=== PATIENT | female | born 1955 | race Two or more races ===

== ENCOUNTER 2020-11-29 20:37 | Inpatient (IN) | payer MEDICARE, OTHER ==
[~2020-11-29] VITALS: Ht 154.9 cm; Wt 59.9 kg
--- NOTE | 2020-11-29 21:10 | NUR ---
According to ERMD patient is medicall cleared.
[2020-11-29] MEDS ORDERED: CHOL100062 PO (21:25)
[2020-11-29] MEDS ORDERED: DOCU-141 PO (21:25)
[2020-11-29] MEDS ORDERED: CALC1TAB30 PO (21:25)
[2020-11-29] MEDS ORDERED: LINA5TAB PO (21:25)
[2020-11-29] MEDS ORDERED: PRED-429 PO (21:25)
[2020-11-29] MEDS ORDERED: ACET-2605 PO (21:25)
[2020-11-29] MEDS ORDERED: MULT-635 PO (21:25)
[2020-11-29] MEDS ORDERED: POLY17PO29 PO (21:25)
[2020-11-29] MEDS ORDERED: METO10TA3 PO (21:25)
[2020-11-29] MEDS ORDERED: HYDR-3326 PO (21:25)
[2020-11-29] MEDS ORDERED: AMLO10TA59 PO (21:25)
[2020-11-29] MEDS ORDERED: ONDA4TAB5 PO (21:25)
[2020-11-29] MEDS ORDERED: PANT40TA2 PO (21:25)
[2020-11-29] MEDS ORDERED: ALBU90AE2 INH (21:25)
[2020-11-29] MEDS ORDERED: ACET325C7 PO (21:25)
[2020-11-29] MEDS ORDERED: TIMO5DRO18 OP (21:25)
[2020-11-29] MEDS ORDERED: ONDA4TAB8 PO (21:25)
[2020-11-29] MEDS ORDERED: GABA-534 PO (21:25)
[2020-11-29] MEDS ORDERED: TRAM50TA2 PO (21:25)
[2020-11-29] MEDS ORDERED: SULF1TAB48 PO (21:25)
[2020-11-29 23:04] LABS: IRON, SERUM 13 ug/dL (50-175)
[2020-11-29 23:15] VITALS: BP 142/74
[2020-11-29] MEDS ORDERED: MAGNESIUM HYDROXIDE 30 ML LIQUID UDC PO PRN (23:30)
[2020-11-29] MEDS ORDERED: MAG HYDROX/AL HYDROX/SIMETH 30 ML LIQUID UDC PO PRN (23:30)
[2020-11-29] MEDS: LORAZEPAM 0.5 MG TABLET PO PRN (23:45)
--- NOTE | 2020-11-30 01:00 | NUR ---
ADMISSION NOTES: ADMITTED EARLIER 65 YEARS OLD FEMALE TO [facility] ON A 5150 HOLD FOR DTS. PER HOLD, PATIENT LIVES WITH HER DAUGHTER. SHE WAS NOTED DEPRESSED, CRYING AND SHAKING. SHE STATED SHE WANTS TO WITH PLAN OT CUT HER WRIST. SHE WAS ANXIOUS THOUGHTS ABOUT BLEEDING AND . UPON ADMISSION, PATIENT WAS NOTED A/O X 3, IRISH SPEAKER. SHE IS ABLE TO AMBULATE WITH STEADY GAIT, AND ABLE TO COMPLY WITH ADMISSION PROCESS. FACE TO FACE ASSESSMENT WAS DONE, PATIENT REFLEX WAS IS WRITTEN ON THE HOLD. SHE STATED THAT SINCE HER ABDOMINAL SURGERY, AND HAVING TO DEAL WITH HER COLOSTOMY BAG, SHE FEELS BURDEN TO HER FAMILY AND SHE HAS BEEN VERY ANXIOUS ABOUT IT AND SHE HAS THOUGHT TO MAKE HERSELF BLEED. HOWEVER, PATIENT IS ABLE TO VERBALLY CONTRACT FOR SAFETY. ATIVAN 0.5MG WAS GIVEN FOR ANXIETY. UPON SKIN ASSESSMENT, IT WAS NOTED A WOUND ON HER MID UPPER UMBILICAL AREA OF 7CM X 7CM WITH MILD SEROUS D/C (WOUND DEHISCENCE) A WOUND COUNSL WAS ORDERED. PATIENT WAS GIVEN THE BOOKLET FOR PATIENT'S RIGHT FOR MENTAL HEALTH FACILITIES. SHE WAS ADVISE OF UNIT RULES, ROOM AND ROOMMATE. PATIENT IS UNDER THE CARE OF DR MARTÍNEZ. WE WILL CONTINUE TO MONITOR.
[2020-11-30] MEDS: TEMAZEPAM 7.5 MG CAPSULE PO PRN (01:32)
[2020-11-30 07:30] VITALS: BP 114/64
--- NOTE | 2020-11-30 07:30 | NUR ---
Received patient calm cooperative, having flat affect, speak , patient approach nursing station regarding her colostomy bag and wound care, colostomy care done , patient no sign of distress, on monitoring for safety and suicidal ideation
--- NOTE | 2020-11-30 09:45 | NUR ---
TIGRE Initial Discharge Plan: Patient currently resides at home [address], [address] [place] [address] lives with daughter Cailin Claudio ([phone]). Patient would like to return home upon discharge. SW left a voicemail for daughter Cailin. TIGRE will continue to work with patient, family, and MD to ensure a safe and proper discharge plan.
--- NOTE | 2020-11-30 09:46 | NUR ---
TIGRE Family Contact: SW left a voicemail for patient's daughter Cailin Claudio ([phone]) to discuss treatment and discharge planning. Waiting for a return call.
--- NOTE | 2020-11-30 09:46 | NUR ---
Firearms Report: Iron Assorter completed and submitted a [employer] firearms report for 5150 danger to self certifications. A copy of report has been placed in patient chart.
[2020-11-30] MEDS ORDERED: ACETAMINOPHEN ES 500 MG TABLET PO SCH (12:00)
[2020-11-30] MEDS ORDERED: ONDANSETRON ODT 4 MG TAB.RAPDIS SL PRN (12:00)
[2020-11-30] MEDS ORDERED: Medication Not On Formulary EA (Acetaminophen (Tylenol) 650 MG) PO SCH (12:00)
--- NOTE | 2020-11-30 12:04 | NUR ---
WOUND CARE CONSULT: PT PRESENTS WITH ABDOMINAL SURGICAL WOUND WELL COLOSTOMY, PRESENT ON ADMISSION. RECOMMENDATIONS MADE FOR SKIN PROTECTION AND WOUND CARE. DISCUSSED WITH NURSING STAFF. DR EREN REYES NOTIFIED OF SURGICAL CONSULT REQUEST. IN AGREEMENT WITH PLAN OF CARE. PT IS AMBULATORY AND CONTINENT WITH OSTOMY. Addendum: 11/30/20 at 1205 by JAMES MCGOVERN RN Amended: Links added.
[2020-11-30] MEDS: SERTRALINE HCL 50 MG TABLET PO SCH (13:07)
[2020-11-30 16:00] VITALS: BP 130/61
[2020-11-30] MEDS: GABAPENTIN 300 MG CAPSULE PO SCH (16:21)
[2020-11-30] MEDS: DOCUSATE SODIUM 100 MG CAPSULE PO SCH (16:21)
[2020-11-30] MEDS: METOCLOPRAMIDE HCL 10 MG TABLET PO SCH (16:22)
[2020-11-30] MEDS: TIMOLOL MALEATE 0.5% OPHT DROP 5 ML BOTTLE EACHEYE SCH (16:22)
[2020-11-30] MEDS: CALCIUM CARB/VITAMIN D 500MG-200UNITS TABLET PO SCH (16:23)
[2020-11-30] MEDS: SILVER SULFADIAZINE 1% CREAM 25 GM TUBE TP SCH (16:24)
--- NOTE | 2020-11-30 18:27 | NUR ---
patient remain isolative, withdrawn, stayed in her room most of the time, compliant with medication , no sign of distress,
[2020-11-30 19:51] VITALS: BP 143/57
[2020-11-30] MEDS: MIRTAZAPINE 15 MG TABLET PO SCH (20:22)
--- NOTE | 2020-11-30 23:47 | NUR ---
awake alert and oriented x3. Compliant with meds and care. No acute distress noted. Colostomy intact. Abdominal wound dressing clean dry and intact. Attended to needs. No behavioral issues noted. Slept well. No complaints presented during shift.
[2020-12-01] MEDS: PANTOPRAZOLE SODIUM 40 MG TABLET.DR PO SCH (06:11)
[2020-12-01] MEDS: METOCLOPRAMIDE HCL 10 MG TABLET PO SCH ×3 (06:31→16:16)
--- NOTE | 2020-12-01 06:36 | NUR ---
Slept well throughout the night. No acute distress noted. Quiet night. Denies any pain nor any discomfort. Colostomy functioning well. Needs attended and met. VSS.
[2020-12-01 07:30] VITALS: BP 113/63
[2020-12-01] MEDS: TIMOLOL MALEATE 0.5% OPHT DROP 5 ML BOTTLE EACHEYE SCH ×2 (08:20→16:08)
[2020-12-01] MEDS: GABAPENTIN 300 MG CAPSULE PO SCH ×2 (08:21→16:06)
[2020-12-01] MEDS: AMLODIPINE 10 MG TABLET PO SCH (08:21)
[2020-12-01] MEDS: predniSONE 5 MG TABLET PO SCH (08:21)
[2020-12-01] MEDS: MULTIVIT, IRON, MIN NO. 8, FA TABLET PO SCH (08:21)
[2020-12-01] MEDS: DOCUSATE SODIUM 100 MG CAPSULE PO SCH ×2 (08:21→16:06)
[2020-12-01] MEDS: LINAGLIPTIN 5 MG TABLET PO SCH (08:21)
[2020-12-01] MEDS: CHOLECALCIFEROL 1,000 UNIT TABLET PO SCH (08:21)
[2020-12-01] MEDS: CALCIUM CARB/VITAMIN D 500MG-200UNITS TABLET PO SCH ×2 (08:22→16:07)
[2020-12-01] MEDS: FERROUS GLUCONATE 324 MG TABLET PO SCH (08:22)
[2020-12-01] MEDS: MIRALAX 17 GM POWD.PACK PO SCH (08:22)
[2020-12-01] MEDS: SILVER SULFADIAZINE 1% CREAM 25 GM TUBE TP SCH ×2 (08:24→16:08)
[2020-12-01] MEDS ORDERED: [UNRECOGNIZED DRUG - MIXTURE] PO SCH (09:00)
[2020-12-01] MEDS ORDERED: PREDNISONE 5 MG PO SCH (09:00)
[2020-12-01] MEDS: SERTRALINE HCL 50 MG TABLET PO SCH (12:02)
[2020-12-01 16:00] VITALS: BP 117/57
[2020-12-01 20:00] VITALS: BP 121/56
[2020-12-01] MEDS: SULFAMETH/TRIMETH 800/160 MG TABLET PO SCH (20:31)
[2020-12-01] MEDS: MIRTAZAPINE 15 MG TABLET PO SCH (20:31)
--- NOTE | 2020-12-02 02:17 | NUR ---
RECEIVED PATIENT IN HER ROOM. ISOLATIVE AND WITHDRAWN. NOT IN DISTRESS AND NO C/O PAIN MADE.NOTED WITH A COLOSTOMY BAG WHICH IS FUNCTIONING WELL. MAINLY IRAQI SPEAKING BUT ABLE TO MAKE NEEDS KNOWN. SHE IS MEDICATION COMPLIANT.SAFE ENVIRONMENT PROVIDED. WILL CONTINUE TO MONITOR.
[2020-12-02] MEDS: PANTOPRAZOLE SODIUM 40 MG TABLET.DR PO SCH (06:22)
[2020-12-02] MEDS: METOCLOPRAMIDE HCL 10 MG TABLET PO SCH ×3 (06:23→17:05)
--- NOTE | 2020-12-02 06:28 | NUR ---
SHE SLEPT WELL FOR 10 HOURS. SHE A SMALL BM IN HER COLOSTOMY POUCH BUT SAYS SHE WILL EMPTY IT LATER..
[2020-12-02 07:30] VITALS: BP 126/66
[2020-12-02] MEDS: MULTIVIT, IRON, MIN NO. 8, FA TABLET PO SCH (09:08)
[2020-12-02] MEDS: GABAPENTIN 300 MG CAPSULE PO SCH ×2 (09:08→17:05)
[2020-12-02] MEDS: DOCUSATE SODIUM 100 MG CAPSULE PO SCH ×2 (09:08→17:05)
[2020-12-02] MEDS: SULFAMETH/TRIMETH 800/160 MG TABLET PO SCH ×2 (09:08→20:36)
[2020-12-02] MEDS: CHOLECALCIFEROL 1,000 UNIT TABLET PO SCH (09:08)
[2020-12-02] MEDS: AMLODIPINE 10 MG TABLET PO SCH (09:09)
[2020-12-02] MEDS: LINAGLIPTIN 5 MG TABLET PO SCH (09:09)
[2020-12-02] MEDS: predniSONE 5 MG TABLET PO SCH (09:09)
[2020-12-02] MEDS: CALCIUM CARB/VITAMIN D 500MG-200UNITS TABLET PO SCH ×2 (09:10→17:05)
[2020-12-02] MEDS: SILVER SULFADIAZINE 1% CREAM 25 GM TUBE TP SCH ×2 (09:10→17:06)
[2020-12-02] MEDS: TIMOLOL MALEATE 0.5% OPHT DROP 5 ML BOTTLE EACHEYE SCH ×2 (09:11→17:05)
[2020-12-02] MEDS: FERROUS GLUCONATE 324 MG TABLET PO SCH (09:11)
[2020-12-02] MEDS: MIRALAX 17 GM POWD.PACK PO SCH (09:11)
[2020-12-02] MEDS: SERTRALINE HCL 50 MG TABLET PO SCH (12:17)
[2020-12-02 15:32] VITALS: BP 121/64
--- NOTE | 2020-12-02 16:04 | NUR ---
Colostomy Bag changed- educated pt on not to have the colostomy hole of stoma too big as it can irritate the skin. Pt verbalized understanding. Dressing on abd changed as ordered. Dehiscence noted dressing changed as ordered. Pix taken. Pt tolerated intervention. Pt speaks broken lithuanian but able to converse needs and understand instructions.
[2020-12-02 20:02] VITALS: BP 133/68
[2020-12-02] MEDS: MIRTAZAPINE 15 MG TABLET PO SCH (20:36)
[2020-12-02] MEDS: TEMAZEPAM 7.5 MG CAPSULE PO PRN (21:13)
[2020-12-03] MEDS: METOCLOPRAMIDE HCL 10 MG TABLET PO SCH ×3 (06:24→16:50)
[2020-12-03] MEDS: PANTOPRAZOLE SODIUM 40 MG TABLET.DR PO SCH (06:24)
[2020-12-03 07:30] VITALS: BP 154/64
[2020-12-03] MEDS: CHOLECALCIFEROL 1,000 UNIT TABLET PO SCH (08:28)
[2020-12-03] MEDS: SULFAMETH/TRIMETH 800/160 MG TABLET PO SCH ×2 (08:28→20:27)
[2020-12-03] MEDS: CALCIUM CARB/VITAMIN D 500MG-200UNITS TABLET PO SCH ×2 (08:28→16:50)
[2020-12-03] MEDS: AMLODIPINE 10 MG TABLET PO SCH (08:28)
[2020-12-03] MEDS: LINAGLIPTIN 5 MG TABLET PO SCH (08:29)
[2020-12-03] MEDS: MULTIVIT, IRON, MIN NO. 8, FA TABLET PO SCH (08:29)
[2020-12-03] MEDS: GABAPENTIN 300 MG CAPSULE PO SCH ×2 (08:29→16:50)
[2020-12-03] MEDS: DOCUSATE SODIUM 100 MG CAPSULE PO SCH ×2 (08:29→16:50)
[2020-12-03] MEDS: FERROUS GLUCONATE 324 MG TABLET PO SCH (08:29)
[2020-12-03] MEDS: predniSONE 5 MG TABLET PO SCH (08:30)
[2020-12-03] MEDS: TIMOLOL MALEATE 0.5% OPHT DROP 5 ML BOTTLE EACHEYE SCH ×2 (08:32→16:49)
[2020-12-03] MEDS: MIRALAX 17 GM POWD.PACK PO SCH (08:32)
[2020-12-03] MEDS: SILVER SULFADIAZINE 1% CREAM 25 GM TUBE TP SCH ×2 (08:37→16:49)
--- NOTE | 2020-12-03 09:51 | NUR ---
SW Family Contact: SW spoke with patient's daughter Cailin Claudio ([phone]) with the help of translating by Jj ROJO and discussed treatment and discharge plan. Cailin stated that she wants SNF placement for the patient at this time.
--- NOTE | 2020-12-03 10:22 | NUR ---
RECEIVED PT AWAKE, ALERT AND ORIENTEDX3. PT IN NO ACUTE DISTRESS. PT PLEASANT WHEN APPROACHED. SAFETY AND COMFORT PROVIDED. WILL CONTINUE TO MONITOR.
[2020-12-03] MEDS: SERTRALINE HCL 50 MG TABLET PO SCH ×2 (12:10→16:50)
--- NOTE | 2020-12-03 12:52 | NUR ---
TIGRE SNF Referral: TIGRE faxed patient's referral packet to [facility] [address] [place] [phone] ([phone]) with attention to Miriam night coordinator for review. Addendum: 12/04/20 at 0724 by MILLY DYE Spoke with Miriam who stated they cannot accept the patient to their facility due to SI.
--- NOTE | 2020-12-03 14:46 | NUR ---
PT IN NO ACUTE DISTRESS. COMPLIANT WITH CARE. PRESCRIBED MEDICATION GIVEN AND PT TOLERATED IT WELL. WOUND CARE PROVIDED. SAFETY AND COMFORT PROVIDED. WILL ENDORSE TO INCOMING NURSE.
[2020-12-03 16:00] VITALS: BP 121/69
[2020-12-03] MEDS: MIRTAZAPINE 15 MG TABLET PO SCH (20:27)
[2020-12-03 20:30] VITALS: BP 136/66
[2020-12-04] MEDS: ACETAMINOPHEN 325 MG TABLET PO PRN ×2 (03:38→20:22)
[2020-12-04] MEDS: LORAZEPAM 0.5 MG TABLET PO PRN (04:14)
--- NOTE | 2020-12-04 06:23 | NUR ---
Received Pt in bed awake, A+Ox3. Pleasant on approach, but quiet and in a low mood. Appears depressed, Pt is isolative, reclusive, and only out of her room for needs. Compliant with medications, cooperative with staff and unit rules. Denies any current SI/HI and verbally contracts for safety inside the hospital. Surgical abd wound noted s/p colostomy placement. Wound is approximately 21cm in diameter, pink, and draining scant amounts of serous fluid. No s/s of infection noted, wound change performed as ordered-cleansed site with NS, patted dry, applied Silvadene to site, placed oil emusion dressing over site, covered with non adherent abd pad, and secured with paper tape. Pt tolerated the procedure well. Pt rested until 0330 and awoke c/o nausea, mild epigastric pain, and anxiety. Zofran 4mg, Tylenol 650mg, and Ativan 0.5mg administered with good effect. Pt noted to be laying in bed with her eyes closed, breathing even and unlabored about 1 hour after administration. Colostomy bag emptied. VS stable, in no acute distress.
[2020-12-04] MEDS: PANTOPRAZOLE SODIUM 40 MG TABLET.DR PO SCH (06:34)
[2020-12-04] MEDS: METOCLOPRAMIDE HCL 10 MG TABLET PO SCH ×3 (06:34→17:20)
[2020-12-04 07:30] VITALS: BP 132/58
[2020-12-04] MEDS: DOCUSATE SODIUM 100 MG CAPSULE PO SCH ×2 (08:47→17:20)
[2020-12-04] MEDS: CHOLECALCIFEROL 1,000 UNIT TABLET PO SCH (08:48)
[2020-12-04] MEDS: LINAGLIPTIN 5 MG TABLET PO SCH (08:48)
[2020-12-04] MEDS: MULTIVIT, IRON, MIN NO. 8, FA TABLET PO SCH (08:48)
[2020-12-04] MEDS: MIRALAX 17 GM POWD.PACK PO SCH (08:48)
[2020-12-04] MEDS: CALCIUM CARB/VITAMIN D 500MG-200UNITS TABLET PO SCH ×2 (08:48→17:19)
[2020-12-04] MEDS: AMLODIPINE 10 MG TABLET PO SCH (08:48)
[2020-12-04] MEDS: GABAPENTIN 300 MG CAPSULE PO SCH ×2 (08:48→17:19)
[2020-12-04] MEDS: FERROUS GLUCONATE 324 MG TABLET PO SCH (08:48)
[2020-12-04] MEDS: TIMOLOL MALEATE 0.5% OPHT DROP 5 ML BOTTLE EACHEYE SCH ×2 (08:49→17:20)
[2020-12-04] MEDS: predniSONE 5 MG TABLET PO SCH (08:53)
[2020-12-04] MEDS: SILVER SULFADIAZINE 1% CREAM 25 GM TUBE TP SCH ×2 (08:57→20:08)
[2020-12-04] MEDS: SULFAMETH/TRIMETH 800/160 MG TABLET PO SCH ×2 (08:59→20:05)
--- NOTE | 2020-12-04 09:36 | NUR ---
TIGRE SNF Referral: TIGRE faxed patient's referral packet to [facility] ([phone]) attention to Fil[facility] and [facility] ([phone]) attention to Nesha. Addendum: 12/04/20 at 1247 by MILLY DYE Patient is accepted at [facility]. Patient did not get accepted at [facility].
--- NOTE | 2020-12-04 10:31 | NUR ---
SW Individual Therapy Note: SW met with patient to provide brief individual counseling to address patient's presenting problem of suicidal ideation. SW assessed patient's level of suicidality. Patient presents with a brighter affect and states she is having less suicidal ideation. Patient expressed she still have feelings of anxiety and depression. SW will continue to monitor patient's suicidality and encouraged patient to attend group activities. SW also discussed SNF placement and patient is agreeable going to a SNF upon discharge.
[2020-12-04] MEDS: SERTRALINE HCL 50 MG TABLET PO SCH ×2 (14:33→17:20)
[2020-12-04 15:11] VITALS: BP 102/46
[2020-12-04] MEDS: MIRTAZAPINE 15 MG TABLET PO SCH (20:05)
[2020-12-04 20:18] VITALS: BP 141/55
--- NOTE | 2020-12-04 22:08 | NUR ---
PATIENT RECEIVED IN BED AWAKE. PATIENT IS CALM AND COOPERATIVE. PATIENT DENIES SI SHE STATED " I HAD A GOOD DAY TODAY." NO AGGRESSIVE OR COMBATIVE BEHAVIOR NOTED. PATIENT IS ALERT/ORIENTED X3. PATIENT IS COMPLAINT WITH MEDICATION AND TREATMENT TO ABDOMINAL IS RENDERED ORDERED. PATIENT IS AMBULATORY AND PATIENT IS ABLE TO MAKE NEEDS KNOWN. SAFE ENVIRONMENT PROVIDED, FREQUENT ROUNDING, AND CLUTTER FREE ENVIRONMENT. BED IN LOWEST POSITION AND BED LOCKED.
[2020-12-05] MEDS: METOCLOPRAMIDE HCL 10 MG TABLET PO SCH ×3 (06:31→17:25)
[2020-12-05] MEDS: PANTOPRAZOLE SODIUM 40 MG TABLET.DR PO SCH (06:31)
[2020-12-05 07:30] VITALS: BP 132/64
[2020-12-05] MEDS: predniSONE 5 MG TABLET PO SCH (08:31)
[2020-12-05] MEDS: AMLODIPINE 10 MG TABLET PO SCH (08:31)
[2020-12-05] MEDS: CALCIUM CARB/VITAMIN D 500MG-200UNITS TABLET PO SCH ×2 (08:31→17:27)
[2020-12-05] MEDS: MULTIVIT, IRON, MIN NO. 8, FA TABLET PO SCH (08:31)
[2020-12-05] MEDS: GABAPENTIN 300 MG CAPSULE PO SCH ×2 (08:31→17:25)
[2020-12-05] MEDS: CHOLECALCIFEROL 1,000 UNIT TABLET PO SCH (08:31)
[2020-12-05] MEDS: SILVER SULFADIAZINE 1% CREAM 25 GM TUBE TP SCH ×2 (08:32→21:00)
[2020-12-05] MEDS: SULFAMETH/TRIMETH 800/160 MG TABLET PO SCH ×2 (08:32→20:41)
[2020-12-05] MEDS: DOCUSATE SODIUM 100 MG CAPSULE PO SCH ×2 (08:32→17:25)
[2020-12-05] MEDS: LINAGLIPTIN 5 MG TABLET PO SCH (08:32)
[2020-12-05] MEDS: FERROUS GLUCONATE 324 MG TABLET PO SCH (08:32)
[2020-12-05] MEDS: TIMOLOL MALEATE 0.5% OPHT DROP 5 ML BOTTLE EACHEYE SCH ×2 (08:49→17:28)
[2020-12-05] MEDS: MIRALAX 17 GM POWD.PACK PO SCH (08:49)
[2020-12-05] MEDS: SERTRALINE HCL 50 MG TABLET PO SCH ×2 (12:07→17:26)
--- NOTE | 2020-12-05 14:08 | NUR ---
Court Hearing: Patient's court hearing was held today and it was upheld for GD and danger to self.
[2020-12-05 16:06] VITALS: BP 109/43
[2020-12-05] MEDS: MIRTAZAPINE 15 MG TABLET PO SCH (20:41)
[2020-12-05 21:12] VITALS: BP 128/58
[2020-12-06] MEDS: PANTOPRAZOLE SODIUM 40 MG TABLET.DR PO SCH (06:05)
--- NOTE | 2020-12-06 06:13 | NUR ---
Patient slept about 7.45 hrs.Calm and pleasant.Adherent with medication.Colostomy in place. Refused wound care tx at this time.Patient states she wants it to be done in the morning after shower.
[2020-12-06] MEDS: METOCLOPRAMIDE HCL 10 MG TABLET PO SCH ×3 (06:31→16:37)
[2020-12-06 07:30] VITALS: BP 123/50
[2020-12-06] MEDS: MULTIVIT, IRON, MIN NO. 8, FA TABLET PO SCH (08:17)
[2020-12-06] MEDS: FERROUS GLUCONATE 324 MG TABLET PO SCH (08:18)
[2020-12-06] MEDS: CHOLECALCIFEROL 1,000 UNIT TABLET PO SCH (08:18)
[2020-12-06] MEDS: predniSONE 5 MG TABLET PO SCH (08:18)
[2020-12-06] MEDS: LINAGLIPTIN 5 MG TABLET PO SCH (08:18)
[2020-12-06] MEDS: AMLODIPINE 10 MG TABLET PO SCH (08:18)
[2020-12-06] MEDS: GABAPENTIN 300 MG CAPSULE PO SCH ×2 (08:18→16:37)
[2020-12-06] MEDS: DOCUSATE SODIUM 100 MG CAPSULE PO SCH ×2 (08:19→16:37)
[2020-12-06] MEDS: MIRALAX 17 GM POWD.PACK PO SCH (08:19)
[2020-12-06] MEDS: SULFAMETH/TRIMETH 800/160 MG TABLET PO SCH (08:30)
[2020-12-06] MEDS: SILVER SULFADIAZINE 1% CREAM 25 GM TUBE TP SCH ×2 (09:00→20:19)
[2020-12-06] MEDS: CALCIUM CARB/VITAMIN D 500MG-200UNITS TABLET PO SCH ×2 (09:21→16:37)
[2020-12-06] MEDS: TIMOLOL MALEATE 0.5% OPHT DROP 5 ML BOTTLE EACHEYE SCH ×2 (10:21→16:40)
--- NOTE | 2020-12-06 10:29 | NUR ---
Gps/Bakery Associate- Colostomy care amd abdominal wound care will be done after shower per pt. request.
[2020-12-06] MEDS: SERTRALINE HCL 50 MG TABLET PO SCH ×2 (12:07→16:39)
[2020-12-06 16:35] VITALS: BP 133/60
[2020-12-06 20:00] VITALS: BP 110/50
[2020-12-06] MEDS: MIRTAZAPINE 15 MG TABLET PO SCH (20:18)
--- NOTE | 2020-12-06 21:27 | NUR ---
Awake alert and oriented x4 Ambulatory. VSS. Attended to needs. No acute distress noted. Colostomy intact, soft blackish stools noted. Will monitor patient. Abdominal dressing intact.
[2020-12-07] MEDS: PANTOPRAZOLE SODIUM 40 MG TABLET.DR PO SCH (06:17)
[2020-12-07] MEDS: METOCLOPRAMIDE HCL 10 MG TABLET PO SCH ×3 (06:32→16:31)
[2020-12-07 07:30] VITALS: BP 152/76
[2020-12-07] MEDS: DOCUSATE SODIUM 100 MG CAPSULE PO SCH ×2 (08:35→16:30)
[2020-12-07] MEDS: CALCIUM CARB/VITAMIN D 500MG-200UNITS TABLET PO SCH ×2 (08:35→16:28)
[2020-12-07] MEDS: LINAGLIPTIN 5 MG TABLET PO SCH (08:35)
[2020-12-07] MEDS: CHOLECALCIFEROL 1,000 UNIT TABLET PO SCH (08:35)
[2020-12-07] MEDS: FERROUS GLUCONATE 324 MG TABLET PO SCH (08:35)
[2020-12-07] MEDS: MULTIVIT, IRON, MIN NO. 8, FA TABLET PO SCH (08:35)
[2020-12-07] MEDS: AMLODIPINE 10 MG TABLET PO SCH (08:36)
[2020-12-07] MEDS: predniSONE 5 MG TABLET PO SCH (08:36)
[2020-12-07] MEDS: GABAPENTIN 300 MG CAPSULE PO SCH ×2 (08:36→16:31)
[2020-12-07] MEDS: MIRALAX 17 GM POWD.PACK PO SCH (08:37)
[2020-12-07] MEDS: SILVER SULFADIAZINE 1% CREAM 25 GM TUBE TP SCH ×2 (08:37→20:48)
[2020-12-07] MEDS: TIMOLOL MALEATE 0.5% OPHT DROP 5 ML BOTTLE EACHEYE SCH ×2 (08:46→16:34)
--- NOTE | 2020-12-07 11:12 | NUR ---
Gps/Cigar Making Supervisor- Wound care to lower abdominal open wound redressed as ordered., pinkish red, no drainage , granulation noted. Colostomy bag secured.
[2020-12-07] MEDS: SERTRALINE HCL 50 MG TABLET PO SCH ×2 (12:23→16:30)
--- NOTE | 2020-12-07 14:31 | NUR ---
TIGRE Individual Therapy Note: SW met with patient to provide brief individual counseling to address patient's presenting problem of suicidal ideation. SW assessed patient's level of suicidality. Patient denies suicidal ideation, however states that she has moments of feeling sad. SW discussed discharge planning with patient to a SNF. Patient is agreeable.
[2020-12-07 16:31] VITALS: BP 128/63
[2020-12-07 20:07] VITALS: BP 141/55
[2020-12-07] MEDS: MIRTAZAPINE 15 MG TABLET PO SCH (20:48)
--- NOTE | 2020-12-07 21:26 | NUR ---
Received patient lying in bed. No s/s of acute distress noted at this time. Patient compliant with her routine medications. Pleasant when interactive and cooperative with plan of care. Patient denies SI thoughts. States they feel depressed at times. Reassured patient to verbalize needs. Safety measures in place and will continue with plan of care.
--- NOTE | 2020-12-08 05:37 | NUR ---
Patient slept about 6.15 hrs. Calm and pleasant. Colostomy in place. Refused wound care tx at this time.Patient states she wants it to be done in the morning. Will endorse to oncoming nurse
[2020-12-08] MEDS: PANTOPRAZOLE SODIUM 40 MG TABLET.DR PO SCH (06:03)
[2020-12-08] MEDS: METOCLOPRAMIDE HCL 10 MG TABLET PO SCH ×3 (06:32→16:47)
[2020-12-08 07:30] VITALS: BP 124/61
[2020-12-08] MEDS: CHOLECALCIFEROL 1,000 UNIT TABLET PO SCH (08:28)
[2020-12-08] MEDS: GABAPENTIN 300 MG CAPSULE PO SCH ×2 (08:28→16:47)
[2020-12-08] MEDS: predniSONE 5 MG TABLET PO SCH (08:29)
[2020-12-08] MEDS: AMLODIPINE 10 MG TABLET PO SCH (08:29)
[2020-12-08] MEDS: DOCUSATE SODIUM 100 MG CAPSULE PO SCH ×2 (08:29→16:47)
[2020-12-08] MEDS: MULTIVIT, IRON, MIN NO. 8, FA TABLET PO SCH (08:29)
[2020-12-08] MEDS: FERROUS GLUCONATE 324 MG TABLET PO SCH (08:29)
[2020-12-08] MEDS: CALCIUM CARB/VITAMIN D 500MG-200UNITS TABLET PO SCH ×2 (08:29→16:47)
[2020-12-08] MEDS: MIRALAX 17 GM POWD.PACK PO SCH (08:30)
[2020-12-08] MEDS: TIMOLOL MALEATE 0.5% OPHT DROP 5 ML BOTTLE EACHEYE SCH ×2 (08:30→16:48)
[2020-12-08] MEDS: LINAGLIPTIN 5 MG TABLET PO SCH (08:30)
[2020-12-08] MEDS: SILVER SULFADIAZINE 1% CREAM 25 GM TUBE TP SCH ×2 (08:31→20:19)
[2020-12-08] MEDS: SERTRALINE HCL 50 MG TABLET PO SCH ×2 (12:06→16:47)
[2020-12-08 16:00] VITALS: BP 116/59
[2020-12-08 18:53] LABS: *BILIRUBIN,URIN NEGATIVE (NEGATIVE); *BLOOD, URINE 2+ (NEGATIVE); *COLOR,URINE LIGHT YELLOW (YELLOW); *KETONES,URINE NEGATIVE (NEGATIVE); *UROBILINOGEN,URINE 0.2 E.U./dl (NORMAL); LEUKOCYTE ESTERASE ,URINE NEGATIVE (NEGATIVE); NITRITE, URINE NEGATIVE (NEGATIVE); PH,URINE 7.5 (5.0-8.0); UGLUCOSE NEGATIVE (NEGATIVE)
[2020-12-08 18:59] LABS: *CLARITY,URINE SLIGHTLY HAZY (CLEAR)
[2020-12-08 19:00] LABS: BACTERIA,URINE NONE SEEN /HPF (NONE SEEN); WBC,URINE 0-3 /HPF (0-3)
[2020-12-08 19:01] LABS: SQUAMOUS EPITHELIAL CELL,UR NONE SEEN /HPF (NONE SEEN)
[2020-12-08 20:07] VITALS: BP 127/59
[2020-12-08] MEDS: MIRTAZAPINE 15 MG TABLET PO SCH (20:19)
[2020-12-08] MEDS: ACETAMINOPHEN 325 MG TABLET PO PRN (20:29)
[2020-12-08] MEDS: TEMAZEPAM 7.5 MG CAPSULE PO PRN (21:33)
[2020-12-09] MEDS: PANTOPRAZOLE SODIUM 40 MG TABLET.DR PO SCH (06:34)
[2020-12-09] MEDS: METOCLOPRAMIDE HCL 10 MG TABLET PO SCH ×3 (06:34→16:32)
--- NOTE | 2020-12-09 07:00 | NUR ---
Received Pt in bed awake, A+Ox3. Pleasant on approach, but quiet and in a low mood. Appears depressed, Pt is isolative, reclusive, and only out of her room for needs. Compliant with medications, cooperative with staff and unit rules. Denies any current SI/HI and verbally contracts for safety inside the hospital. Surgical abd wound noted s/p colostomy placement. Wound is approximately 21cm in diameter, pink, and draining scant amounts of serous fluid. No s/s of infection noted, wound change performed as ordered-cleansed site with NS, patted dry, applied Silvadene to site, placed oil emulsion dressing over site, covered with non adherent abd pad, and secured with paper tape. Pt tolerated the procedure well. Tylenol 650mg administered for 6/10 abd surgical wound pain, and Restoril 7.5mg administered for insomnia, both with good effect. VS stable
[2020-12-09 07:30] VITALS: BP 134/80
[2020-12-09] MEDS: MIRALAX 17 GM POWD.PACK PO SCH (08:21)
[2020-12-09] MEDS: FERROUS GLUCONATE 324 MG TABLET PO SCH (08:21)
[2020-12-09] MEDS: CHOLECALCIFEROL 1,000 UNIT TABLET PO SCH (08:21)
[2020-12-09] MEDS: predniSONE 5 MG TABLET PO SCH (08:22)
[2020-12-09] MEDS: CALCIUM CARB/VITAMIN D 500MG-200UNITS TABLET PO SCH ×2 (08:22→16:30)
[2020-12-09] MEDS: LINAGLIPTIN 5 MG TABLET PO SCH (08:22)
[2020-12-09] MEDS: AMLODIPINE 10 MG TABLET PO SCH (08:22)
[2020-12-09] MEDS: DOCUSATE SODIUM 100 MG CAPSULE PO SCH ×2 (08:22→16:31)
[2020-12-09] MEDS: MULTIVIT, IRON, MIN NO. 8, FA TABLET PO SCH (08:22)
[2020-12-09] MEDS: GABAPENTIN 300 MG CAPSULE PO SCH ×2 (08:22→16:30)
[2020-12-09] MEDS: TIMOLOL MALEATE 0.5% OPHT DROP 5 ML BOTTLE EACHEYE SCH ×2 (08:23→16:31)
[2020-12-09] MEDS: SILVER SULFADIAZINE 1% CREAM 25 GM TUBE TP SCH ×2 (08:42→20:18)
[2020-12-09] MEDS ORDERED: FERROUS SULFATE 325 MG TABEC PO SCH (09:00)
[2020-12-09] MEDS: SERTRALINE HCL 50 MG TABLET PO SCH ×2 (12:02→16:31)
[2020-12-09 16:00] VITALS: BP 131/65
[2020-12-09 19:58] VITALS: BP 127/50
[2020-12-09] MEDS: MIRTAZAPINE 15 MG TABLET PO SCH (20:17)
[2020-12-09] MEDS ORDERED: SIMVASTATIN 20 MG TABLET PO SCH (21:00)
[2020-12-09] MEDS: TEMAZEPAM 7.5 MG CAPSULE PO PRN (21:25)
[2020-12-10] MEDS: PANTOPRAZOLE SODIUM 40 MG TABLET.DR PO SCH (06:14)
[2020-12-10 06:53] LABS: BASOPHILS # (AUTO) 0.1 K/uL (0.0-8.0); EOSINOPHILS # (AUTO) 0.2 K/uL (0.0-0.7); EOSINOPHILS % (AUTO) 2.4 % (0.0-7.0); HEMOGLOBIN 10.2 g/dL (10.9-14.3); LYMPHOCYTES # (AUTO) 2.1 K/uL (20.0-40.0); MEAN CORPUSCULAR HEMOGLOBIN 25.4 uug (24.7-32.8); MEAN CORPUSCULAR HGB CONC 33 g/dL (32.3-35.6); MEAN CORPUSCULAR VOLUME 77.6 fL (75.5-95.3); MONOCYTES # (AUTO) 0.6 K/uL (2.0-10.0); MONOCYTES % (AUTO) 7.6 % (0.0-11.0); NEUTROPHILS # (AUTO) 4.8 K/uL (1.8-8.9); PLATELET COUNT (AUTO) 462 K/uL (179-408); WHITE BLOOD COUNT (AUTO) 7.8 K/uL (3.8-11.8)
[2020-12-10] MEDS: METOCLOPRAMIDE HCL 10 MG TABLET PO SCH (07:03)
[2020-12-10 07:05] LABS: CREATININE 1.6 mg/dL (0.6-1.3); POTASSIUM 3.7 mmol/L (3.5-5.1)
[2020-12-10 07:30] VITALS: BP 143/63
--- NOTE | 2020-12-10 08:19 | NUR ---
SW Discharge Note: Patient will be discharged to [facility] [address] [place] [address] ([phone]). Patient will be provided Ambulance transportation at 11AM. Spoke with Maria C, Admin Coordinator at the facility who states they are ready to accept the patient today. Patient is aware and agreeable with discharge plans. Patient is alert and oriented x3, is unable to plan for self-care at this time, however, is willing to accept care at [facility]. Patient denies any suicidal or homicidal ideation. Patient presented with euthymic and congruent affect. Patient will follow-up at the facility with Dr. Cannon Psychiatrist and Dr. Agosto Wire Spooler. Patients daughter, Cailin Claudio ([phone]) is aware of discharge and agreeable.
[2020-12-10 08:20] VITALS: BP 142/61
[2020-12-10] MEDS: LINAGLIPTIN 5 MG TABLET PO SCH (08:20)
[2020-12-10] MEDS: MULTIVIT, IRON, MIN NO. 8, FA TABLET PO SCH (08:20)
[2020-12-10] MEDS: GABAPENTIN 300 MG CAPSULE PO SCH (08:20)
[2020-12-10] MEDS: DOCUSATE SODIUM 100 MG CAPSULE PO SCH (08:20)
[2020-12-10] MEDS: MIRALAX 17 GM POWD.PACK PO SCH (08:20)
[2020-12-10] MEDS: CALCIUM CARB/VITAMIN D 500MG-200UNITS TABLET PO SCH (08:20)
[2020-12-10] MEDS: FERROUS GLUCONATE 324 MG TABLET PO SCH (08:20)
[2020-12-10] MEDS: CHOLECALCIFEROL 1,000 UNIT TABLET PO SCH (08:20)
[2020-12-10] MEDS: predniSONE 5 MG TABLET PO SCH (08:20)
[2020-12-10] MEDS: AMLODIPINE 10 MG TABLET PO SCH (08:20)
[2020-12-10] MEDS: SILVER SULFADIAZINE 1% CREAM 25 GM TUBE TP SCH (08:21)
[2020-12-10] MEDS: TIMOLOL MALEATE 0.5% OPHT DROP 5 ML BOTTLE EACHEYE SCH (08:21)
[2020-12-10] MEDS ORDERED: METOCLOPRAMIDE HCL 10 MG TABLET PO SCH (11:30)
--- NOTE | 2020-12-10 11:30 | NUR ---
GPS: Nursing Notes: Discharge Notes: Patient is awake and responding to her name, cooperative with nursing care, compliant with her medications and abdominal surgical wound treatment, patient showered and colostomy bag changed this AM, following staff directions, denies SI/HI, denies AH/VH, denies pain or discomfort, denies SOB. Discharge to [facility] at [address] [place] [address] , report given to facility's nurse - JASEN Denis wet end supervisor, transported to facility via ambulance, discharge package given to the boat driver for the facility. Patient will follow-up at the facility with Dr. Cannon Psychiatrist and Dr. Agosto Hearing Aid Dispenser. Patients daughter, Cailin Claudio ([phone]) informed of discharge by social science research assistant, patient took all her belongings with her, continue with discharge planning.
== END 2020-12-10 11:30 | DRG 876 ==
LOC: ER 20:39 → GPS 22:38
PROVIDERS: ADMIT Psychiatry & Neurology Psychosomatic Medicine; ATTEND Registered Nurse
PROC: 0JB80ZZ Excision of Abdomen Subcutaneous Tissue and Fascia, Open Approach (ICD-10-PCS; principal; 2020-11-30)
DX: F33.2 Major depressive disorder, recurrent severe without psychotic features (principal); N17.0 Acute kidney failure with tubular necrosis; Z93.3 Colostomy status; R45.851 Suicidal ideations; L03.311 Cellulitis of abdominal wall; F23 Brief psychotic disorder; T81.30XA Disruption of wound, unspecified, initial encounter; M06.9 Rheumatoid arthritis, unspecified; D50.9 Iron deficiency anemia, unspecified; E11.9 Type 2 diabetes mellitus without complications; E78.5 Hyperlipidemia, unspecified; E83.52 Hypercalcemia; J45.909 Unspecified asthma, uncomplicated; K21.9 Gastro-esophageal reflux disease without esophagitis; F41.0 Panic disorder [episodic paroxysmal anxiety]; Y82.8 Other medical devices associated with adverse incidents; Z20.822 Contact with and (suspected) exposure to COVID-19; Y92.89 Other specified places as the place of occurrence of the external cause
CPT/HCPCS: 36415; 83550; 85025; 87086; A4663; C1758; J7512; J8597; Q0162